=== PATIENT | male | born 1945 | race Caucasian/White ===

== ENCOUNTER 2021-08-07 08:14 | Day surgery (SDC) | payer OTHER ==
[2021-08-04 12:38] LABS: BASOPHILS # (AUTO) 0.1 X10'3 (0-0.2); BASOPHILS % (AUTO) 1.1 % (0-1); EOSINOPHILS # (AUTO) 0.3 X10'3 (0-0.9); EOSINOPHILS % (AUTO) 3.8 % (0-6); LYMPHOCYTES # (AUTO) 2.1 X10'3 (1.1-4.8); LYMPHOCYTES % (AUTO) 31.7 % (21-51); MEAN CORPUSCULAR HEMOGLOBIN 32.1 PG (27.0-31.0); MEAN CORPUSCULAR HGB CONC 33.4 g/dL (33.0-36.5); MEAN CORPUSCULAR VOLUME 96.1 FL (78-98); MEAN PLATELET VOLUME 10.5 FL (7.4-10.4); MONOCYTES # (AUTO) 0.8 X10'3 (0-0.9); MONOCYTES % (AUTO) 11.6 % (2-12); NEUTROPHILS # (AUTO) 3.5 X10'3 (1.8-7.7); NEUTROPHILS % (AUTO) 51.8 % (42-75); PRE OP HEMATOCRIT 45.1 % (42.0-52.0); PRE OP HEMOGLOBIN 15.1 g/dL (14.0-17.9); PRE OP PLATELET COUNT 194 X10'3 (140-440); RED CELL DISTRIBUTION WIDTH 13.7 % (11.5-14.5)
[2021-08-04 12:53] LABS: ALBUMIN 3.7 G/DL (3.4-5.0); ALKALINE PHOSPHATASE 92 IU/L (46-116); BLOOD UREA NITROGEN 16 MG/DL (7-18); BUN/CREATININE RATIO 13.1 (5.4-32.0); CALCIUM 8.6 MG/DL (8.5-10.1); CHLORIDE 110 MMOL/L (99-107); CREATININE 1.22 MG/DL (0.60-1.10); PRE OP ALT 15 U/L (30-65); PRE OP ANION GAP 11 (8-16); PRE OP AST 11 U/L (10-37); PRE OP BILIRUB, TOTAL 0.5 MG/DL (0.0-1.0); PRE OP GLUCOSE 111 MG/DL (70-104); PRE OP POTASSIUM 4.1 MMOL/L (3.4-5.1); PRE OP SODIUM 144 MMOL/L (135-145); TOTAL PROTEIN 7.3 G/DL (6.4-8.2); eGFR 57 ML/MIN
[2021-08-04 13:58] LABS: LARGE PLATELETS FEW; PLATELET ESTIMATE NORMAL
[~2021-08-07] VITALS: Ht 182.9 cm; Wt 77.0 kg
[2021-08-07] VITALS (12 sets, daily range): BP systolic 71–192; BP diastolic 37–91
[~2021-08-07 08:14] MED LIST: BUPIVAcaine/PF 2.5mg/ml (0.25%) 10ml vial ONE; FOLI-62 PO; LIDOcaine 1% 30ml preserv. free vial ONE; [UNRECOGNIZED DRUG - OTHER] PO; cefazolin/dext.iso 2gm/100ml IV ONE; famotidine 20mg tablet PO ONE; ringers solution, lacted 1,000 ML IV SCH
[2021-08-07] MEDS ORDERED: midazolam 1 mg/ML 2ml injection ONE (10:23)
[2021-08-07] MEDS ORDERED: fentaNYL/PF 50MCG/1 ML 2ML syringe ONE (10:23)
[2021-08-07] MEDS ORDERED: ketamine 50mg/5ml syringe ONE (10:51)
[2021-08-07] MEDS ORDERED: bacitracin 15gm ointment TP ONE (11:05)
--- NOTE | 2021-08-07 11:09 | NUR ---
Received from OR via , accompanied by Anesthesiologist DR TELLO and report given by Anesthesiolgist. AWAKENS TO VOICE. VITALS STABLE. DRESSING DI. [place] PAIN.
[2021-08-07] MEDS ORDERED: HYDROcodone/acetaminophen 5mg/325mg tablet PO PRN ×2 (11:20→11:25)
--- NOTE | 2021-08-07 12:15 | NUR ---
AT 1150 PT WAS PREPARING TO GET DRESSED WHEN HE STATED HE FELT THOUGH HE WAS GOING TO PASS OUT. PLACED HIM BACK ON THE MONITOR WHICH SHOWED SB WITH A RATE OF 32. SBP WAS 71 AND PT WAS PALE AND DIAPHORETIC. WITHIN 10 MINUTES HIS RATE INCREASED AND BP SAGAR TO 114/91. PT STATED HE FELT MUCH BETTER. INCIDENT WAS RELAYED TO DR WARNER AND A STAT EKG WAS ORDERED.
--- NOTE | 2021-08-07 12:20 | NUR ---
EKG WAS OBTAINED. IT SHOWED NSR. DR TELLO WAS INFORMED. WANTS TO WATCH HIM FOR ANOTHER 30 MINUTES AND IF STILL STABLE GO AHEAD AND SEND HOME.
--- NOTE | 2021-08-07 12:49 | NUR ---
AWAKE AND ORIENTED. VITALS STABLE. DRESSING DI. [place] PAIN. EVALUATED BY ANESTHESIA. HOME WITH HIS AT THIS TIME.
== END 2021-08-07 12:49 | disposition home or self-care (01) ==
LOC: PAS 08:14
PROVIDERS: ATTEND Surgery
DX: L72.0 Epidermal cyst (principal); R20.3 Hyperesthesia; I25.10 Atherosclerotic heart disease of native coronary artery without angina pectoris; N40.0 Benign prostatic hyperplasia without lower urinary tract symptoms; I10 Essential (primary) hypertension; Z87.891 Personal history of nicotine dependence; Z95.1 Presence of aortocoronary bypass graft; Z88.2 Allergy status to sulfonamides; Z98.1 Arthrodesis status; Z98.890 Other specified postprocedural states; Z95.5 Presence of coronary angioplasty implant and graft; Z79.899 Other long term (current) drug therapy; Z80.6 Family history of leukemia; D21.9 Benign neoplasm of connective and other soft tissue, unspecified
CPT/HCPCS: 11406; 12032; 36415; 80053; 82948; 85025; 93005; J2001; J2250; J3010; J3490; J7120; U0003; U0005; Z7506; Z7512; 85008; A4215; A4618; A7000

== ENCOUNTER 2024-12-20 10:32 | Outpatient (CLI) | payer OTHER ==
[~2024-12-20 10:32] MED LIST changes: +ASPI-1071 PO; +ATOR20TA66 PO; -BUPIVAcaine/PF 2.5mg/ml (0.25%) 10ml vial ONE; +FLO0.4C PO; -FOLI-62 PO; -LIDOcaine 1% 30ml preserv. free vial ONE; +LISI5TAB22 PO; -[UNRECOGNIZED DRUG - OTHER] PO; -cefazolin/dext.iso 2gm/100ml IV ONE; -famotidine 20mg tablet PO ONE; -ringers solution, lacted 1,000 ML IV SCH
== END 2024-12-20 23:59 | disposition home or self-care (01) ==
LOC: CARD DIAG 10:32
PROVIDERS: ATTEND Chiropractor
DX: I08.0 Rheumatic disorders of both mitral and aortic valves (principal); I25.10 Atherosclerotic heart disease of native coronary artery without angina pectoris
CPT/HCPCS: 93306